=== PATIENT | female | born 1990 | race Caucasian/White ===

== ENCOUNTER 2019-03-15 14:34 | Emergency (ER) | payer SELFPAY ==
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
[2019-03-15 15:38] LABS: ABSOLUTE LYMPHOCYTES (AUTO) 1.6 10^3/uL (0.5-4.7); ABSOLUTE MONOCYTES (AUTO) 0.4 10^3/uL (0.1-1.4); ABSOLUTE NEUT (AUTO) 5.8 10^3/uL (1.7-8.2); BASOPHILS % (AUTO) 0.1 % (0-2); EOSINOPHILS % (AUTO) 0.3 % (0-6); HEMATOCRIT 39.9 % (36.0-47.0); HEMOGLOBIN 14.1 g/dL (12.0-15.5); LYMPHOCYTES % (AUTO) 20.8 % (13-45); MEAN CORPUSCULAR HEMOGLOBIN 30.9 pg (27.0-33.4); MEAN CORPUSCULAR HGB CONC 35.4 g/dL (32.0-36.0); MEAN CORPUSCULAR VOLUME 87 fl (80-97); MONOCYTES % (AUTO) 5.3 % (3-13); PLATELET COUNT 193 10^3/uL (150-450); RED BLOOD COUNT 4.57 10^6/uL (3.72-5.28); RED CELL DISTRIBUTION WIDTH 12.4 % (11.5-14.0); SEGMENTED NEUTROPHILS % (AUTO) 73.5 % (42-78); TOTAL CELLS COUNTED % (AUTO) 100 %; WHITE BLOOD COUNT 7.8 10^3/uL (4.0-10.5)
[2019-03-15 16:03] LABS: ALANINE AMINOTRANSFERASE 31 U/L (9-52); ALBUMIN 4.3 g/dL (3.5-5.0); ALKALINE PHOSPHATASE 72 U/L (38-126); ANION GAP 8 (5-19); ASPARTATE AMINO TRANSFERASE 26 U/L (14-36); BILIRUBIN,DIRECT 0.2 mg/dL (0.0-0.4); BILIRUBIN,TOTAL 0.6 mg/dL (0.2-1.3); BLOOD UREA NITROGEN 10 mg/dL (7-20); CALCIUM 10.3 mg/dL (8.4-10.2); CARBON DIOXIDE 27 mmol/L (22-30); CHLORIDE 103 mmol/L (98-107); GLUCOSE 86 mg/dL (75-110); LIPASE 28.3 U/L (23-300); SODIUM 137.6 mmol/L (137-145)
[2019-03-15 16:11] LABS: ACETAMINOPHEN < 10 ug/mL (10-30); ALCOHOL < 10 mg/dL (NONE DETECTED); SALICYLATE < 1.0 mg/dL (2.0-20.0)
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
[2019-03-15 16:45] LABS: APPEARANCE,URINE SLIGHTLY-CLOUDY; BILIRUBIN,URINE NEGATIVE (NEGATIVE); COLOR,URINE STRAW; GLUCOSE, URINE NEGATIVE (NEGATIVE); KETONES,URINE NEGATIVE (NEGATIVE); LEUKOCYTE ESTERASE,URINE NEGATIVE (NEGATIVE); NITRITE,URINE NEGATIVE (NEGATIVE); PROTEIN,URINE NEGATIVE (NEGATIVE); URINE SPECIFIC GRAVITY 1.004; UROBILINOGEN,URINE NEGATIVE mg/dL (<2.0)
[2019-03-15 17:07] LABS: URINE AMPHETAMINES SCREEN NEGATIVE; URINE BARBITURATES SCREEN NEGATIVE; URINE BENZODIAZEPINES SCREEN NEGATIVE; URINE COCAINE SCREEN NEGATIVE; URINE MARIJUANA (THC) SCREEN UNCONFIRMED POSITIVE; URINE METHADONE SCREEN NEGATIVE; URINE PHENCYCLIDINE SCREEN NEGATIVE
[2019-03-15] MEDS ORDERED: ACETAMINOPHEN 325 MG TABLET PO ONE (17:31)
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
[2019-03-15] MEDS: CLONAZEPAM 1 MG TABLET PO SCH (17:49)
[2019-03-15] MEDS: HALOPERIDOL 5 MG TABLET PO PRN (17:49)
--- NOTE | 2019-03-15 19:48 | EKG REPORT ---
SEVERITY:- NORMAL ECG - SINUS RHYTHM : Confirmed by: Lizzy Hull MD 15-Mar-2019 19:48:02
[2019-03-15] MEDS: BENZTROPINE MESYLATE 1 MG TABLET PO SCH (21:28)
[2019-03-15] MEDS: SUCRALFATE 1 GM TABLET PO SCH (21:28)
[2019-03-16] MEDS: SUCRALFATE 1 GM TABLET PO SCH ×4 (08:06→23:13)
[2019-03-16] MEDS: HALOPERIDOL 5 MG TABLET PO PRN ×2 (09:26→17:17)
[2019-03-16] MEDS: ESCITALOPRAM OXALATE 10 MG TABLET PO SCH (09:27)
[2019-03-16] MEDS: CLONAZEPAM 1 MG TABLET PO SCH ×2 (09:28→17:17)
[2019-03-16] MEDS ORDERED: NICOTINE 14 MG/24 HR PATCH.TD24 TD ONE (11:55)
[2019-03-16] MEDS ORDERED: POLYETHYLENE GLYCOL 3350 POWDER 17 GM/1 PACKET PO ONE (15:29)
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
--- NOTE | 2019-03-16 17:44 | ER Document Report ---
Doctor's Note Notes: 03/16/19 17:40 The patient's chart was reviewed, the labs were looked at. The psychiatric caseworkers notes were reviewed. The case was discussed with Jared Singh. The patient has been noted to be in and out of the room frequently today in no distress. At this time she remains on IVC hold and will be reevaluated in the morning.
[2019-03-16] MEDS: BENZTROPINE MESYLATE 1 MG TABLET PO SCH (23:13)
[2019-03-17] MEDS: SUCRALFATE 1 GM TABLET PO SCH ×2 (08:02→11:40)
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
[2019-03-17] MEDS: HALOPERIDOL 5 MG TABLET PO PRN (09:35)
[2019-03-17] MEDS: CLONAZEPAM 1 MG TABLET PO SCH (09:35)
[2019-03-17] MEDS: ESCITALOPRAM OXALATE 10 MG TABLET PO SCH (09:35)
--- NOTE | 2019-03-17 10:19 | ER Document Report ---
Doctor's Note Notes: 03/17/19 10:17 Patient seen and evaluated by myself this morning. She is resting comfortably in no acute distress. She has is complaining of pain over her right elbow. She does have ecchymosis with well-healing abrasion over the distal right humerus. Patient is able to move her right elbow through full range of motion and there is no obvious deformity. She does have some mild tenderness to the distal right humerus under the area of ecchymosis. I do not see any imaging on initial presentation. X-ray will be ordered since patient is having continued pain. Further disposition pending psych eval this morning.
--- NOTE | 2019-03-17 10:56 | RADIOLOGY REPORT (SQ) ---
EXAM DESCRIPTION: HUMERUS RIGHT COMPLETED DATE/TIME: 03/17/2019 10:31 am REASON FOR STUDY: trauma COMPARISON: None. NUMBER OF VIEWS: Two views. TECHNIQUE: Two radiographic images were acquired of the right humerus to include elbow and shoulder in at least one projection. LIMITATIONS: None. FINDINGS: MINERALIZATION: Normal. BONES: No acute fracture or dislocation. No worrisome bone lesions. SOFT TISSUES: No obvious swelling or foreign body. OTHER: No other significant finding. IMPRESSION: NEGATIVE STUDY OF THE RIGHT HUMERUS. NO RADIOGRAPHIC EVIDENCE OF ACUTE INJURY. TECHNICAL DOCUMENTATION: JOB ID: [id number] [email or web address]- All Rights Reserved Reading location - IP/workstation name: [email or web address]
[2019-03-17 13:19] VITALS: BP 126/75
== END 2019-03-17 13:18 | disposition home or self-care (01) ==
LOC: ER 14:34
DX: F23 Brief psychotic disorder (principal); F43.10 Post-traumatic stress disorder, unspecified; R45.850 Homicidal ideations; S40.811A Abrasion of right upper arm, initial encounter; X58.XXXA Exposure to other specified factors, initial encounter; M25.521 Pain in right elbow; F17.210 Nicotine dependence, cigarettes, uncomplicated; Z79.899 Other long term (current) drug therapy; Z88.1 Allergy status to other antibiotic agents; Z88.8 Allergy status to other drugs, medicaments and biological substances; Z91.040 Latex allergy status
CPT/HCPCS: 93005; 99285; 36415; 80307 ×4; 83690; 84703; 85025; 80053; 81001; 73060; 93010; J3490

== ENCOUNTER 2019-11-23 17:13 | Emergency (ER) | payer SELFPAY ==
[2019-11-23] MEDS ORDERED: CHLORPROMAZINE HCL INJ 25 MG/1 ML AMPULE IM ONE (17:24)
[2019-11-23 17:50] LABS: ABSOLUTE LYMPHOCYTES (AUTO) 1.2 10^3/uL (0.5-4.7); ABSOLUTE NEUT (AUTO) 9.1 10^3/uL (1.7-8.2); BASOPHILS % (AUTO) 0.2 % (0-2); HEMATOCRIT 41.9 % (36.0-47.0); HEMOGLOBIN 14.5 g/dL (12.0-15.5); LYMPHOCYTES % (AUTO) 10.5 % (13-45); MEAN CORPUSCULAR HEMOGLOBIN 29.2 pg (27.0-33.4); MEAN CORPUSCULAR HGB CONC 34.5 g/dL (32.0-36.0); MEAN CORPUSCULAR VOLUME 85 fl (80-97); MONOCYTES % (AUTO) 8.7 % (3-13); PLATELET COUNT 215 10^3/uL (150-450); RED BLOOD COUNT 4.96 10^6/uL (3.72-5.28); RED CELL DISTRIBUTION WIDTH 13.1 % (11.5-14.0); SEGMENTED NEUTROPHILS % (AUTO) 80.6 % (42-78); TOTAL CELLS COUNTED % (AUTO) 100 %; WHITE BLOOD COUNT 11.3 10^3/uL (4.0-10.5)
[2019-11-23 18:08] LABS: ALBUMIN 4.9 g/dL (3.5-5.0); ALKALINE PHOSPHATASE 81 U/L (38-126); ANION GAP 16 (5-19); ASPARTATE AMINO TRANSFERASE 45 U/L (14-36); BILIRUBIN,DIRECT 0.1 mg/dL (0.0-0.4); BILIRUBIN,TOTAL 0.6 mg/dL (0.2-1.3); BLOOD UREA NITROGEN 18 mg/dL (7-20); CALCIUM 10.2 mg/dL (8.4-10.2); CARBON DIOXIDE 25 mmol/L (22-30); CHLORIDE 100 mmol/L (98-107); GLUCOSE 110 mg/dL (75-110); POTASSIUM 3.7 mmol/L (3.6-5.0); TOTAL PROTEIN 8.2 g/dL (6.3-8.2)
[2019-11-23 18:10] LABS: ACETAMINOPHEN < 10 ug/mL (10-30); SALICYLATE < 1.0 mg/dL (2.0-20.0)
--- NOTE | 2019-11-23 19:47 | ER Document Report ---
Entered by TEODORO MORRIS SCRIBE 11/23/19 182 Acting as scribe for:ADITHYA EVANGELISTA IV, MD ED Psych Disorder / Suicide - General Chief Complaint: Psych Problem Stated Complaint: PSYCH Mode of Arrival: Ambulatory Information source: Patient Notes: This 29-year-old female patient presents to the emergency department today in handcuffs in custody of the [place] [employer]. The patient was brought in with IVC paperwork as well. OTILIA states that the patient called their department this evening from the [facility] hotel, stating that she had a warrant out for her arrest and she was wishing to turn herself in. OTILIA states that they ran the patient's information and she had no warrants out for her arrest, however she began acting quite bizarre in their presence. Patient reportedly told OTILIA that she was murdered last night and reincarnated today as a man, mentions that she is paralyzed from the waist down but was ambulatory, as well as several other extremely bizarre statements the patient made which caused them to become concerned for the patient's safety. Patient has a history of mental illness including schizophrenia with multiple hospitalizations in the past. TRAVEL OUTSIDE OF THE [place] IN LAST 30 DAYS: No - Related Data Allergies/Adverse Reactions: ciprofloxacin [From Cipro] Allergy (Verified 03/15/19 14:35) divalproex sodium [From Depakote] Allergy (Verified 03/15/19 14:36) latex Allergy (Verified 03/15/19 14:35) Home Medications: unable to answer Past Medical History - General Information source: Patient, PENDING SALE TO [facility] Records - Social History Smoking Status: Unknown if Ever Smoked Chew tobacco use (# tins/day): - ink Frequency of alcohol use: None Drug Abuse: None Lives with: Family Family History: Reviewed & Not Pertinent Patient has suicidal ideation: No Patient has homicidal ideation: No Review of Systems - Review of Systems -: Yes ROS unobtainable due to patient's medical condition Physical Exam - Vital signs Vitals: Temp Pulse Resp BP Pulse Ox 100.5 F H 150 H 20 123/68 98 11/23/19 17:43 11/23/19 17:43 11/23/19 17:43 11/23/19 17:43 11/23/19 17:43 - Notes Notes: Physical Exam: General: Belligerent nonsensical speech, uncooperative, combative, acute psychosis. HEENT: Normocephalic. Atraumatic. PERRL. Extraocular movements intact. Oropharynx clear. Neck: Supple. Non-tender. Respiratory: No respiratory distress. Clear and equal breath sounds bilaterally. Cardiovascular: Regular rate and rhythm. Abdominal: Obese. Non-tender. No distension. Normal Bowel Sounds. Back: No gross abnormalities. Extremities: Moves all four extremities. Upper extremities: Normal inspection. Normal ROM. Lower extremities: Normal inspection. No edema. Normal ROM. Psychological: Tangential speech. Flight of ideas. Grandiose delusions. Bizarre speech. Skin: Warm. Dry. Normal color. Course - Vital Signs Vital signs: Temp Pulse Resp BP Pulse Ox 100.5 F H 150 H 20 123/68 98 11/23/19 17:43 11/23/19 17:43 11/23/19 17:43 11/23/19 17:43 11/23/19 17:43 - Laboratory Result Diagrams: 11/23/19 17:23 11/23/19 17:23 Laboratory results interpreted by me: 11/23/19 11/23/19 17:23 17:23 WBC 11.3 H Lymph % (Auto) 10.5 L Absolute Neuts (auto) 9.1 H Seg Neutrophils % 80.6 H AST 45 H Salicylates < 1.0 L Acetaminophen < 10 L - EKG Interpretation by Me Additional EKG results interpreted by me: 11/23/19 18:39 EKG obtained on 11/23/2019 at 1731 hrs. was interpreted by this MD. Findings: Sinus tachycardia, rate 139, normal axis, P waves proceed QRS complexes. QRS complexes appear narrow. There are no obvious segments of ST elevation or depression present to suggest acute infarct and/or injury. Discharge - Discharge Clinical Impression: Acute psychosis, Involuntary commitment Condition: Good Disposition: PSYCH HOSP/UNIT I personally performed the services described in the documentation, reviewed and edited the documentation which was dictated to the scribe in my presence, and it accurately records my words and actions.
[2019-11-23] MEDS ORDERED: DIPHENHYDRAMINE HCL 50 MG/ML VIAL IM ONE (20:03)
[2019-11-23] MEDS: DIPHENHYDRAMINE HCL 50 MG/ML VIAL IM PRN (21:25)
[2019-11-23] MEDS: CHLORPROMAZINE HCL INJ 25 MG/1 ML AMPULE IM SCH (21:26)
[2019-11-23] MEDS ORDERED: LORAZEPAM 1 MG TABLET PO ONE (22:42)
[2019-11-24] MEDS ORDERED: ACETAMINOPHEN 325 MG TABLET PO ONE ×3 (00:13→20:40)
[2019-11-24 01:33] LABS: APPEARANCE,URINE CLEAR; BILIRUBIN,URINE NEGATIVE (NEGATIVE); COLOR,URINE YELLOW; GLUCOSE, URINE NEGATIVE (NEGATIVE); KETONES,URINE TRACE mg/dL (NEGATIVE); LEUKOCYTE ESTERASE,URINE NEGATIVE (NEGATIVE); NITRITE,URINE NEGATIVE (NEGATIVE); PROTEIN,URINE NEGATIVE (NEGATIVE); URINE SPECIFIC GRAVITY 1.023; UROBILINOGEN,URINE NEGATIVE mg/dL (<2.0)
[2019-11-24 01:51] LABS: URINE BARBITURATES SCREEN NEGATIVE; URINE COCAINE SCREEN NEGATIVE; URINE MARIJUANA (THC) SCREEN NEGATIVE; URINE METHADONE SCREEN NEGATIVE; URINE PHENCYCLIDINE SCREEN NEGATIVE
[2019-11-24 01:52] LABS: URINE AMPHETAMINES SCREEN UNCONFIRMED POSITIVE; URINE BENZODIAZEPINES SCREEN UNCONFIRMED POSITIVE
[2019-11-24] MEDS: CHLORPROMAZINE HCL INJ 25 MG/1 ML AMPULE IM SCH ×3 (06:11→22:49)
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
[2019-11-24] MEDS: DIPHENHYDRAMINE HCL 50 MG/ML VIAL IM PRN (14:30)
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
[2019-11-24] MEDS ORDERED: NICOTINE 21 MG/24 HR PATCH.TD24 TD ONE (14:53)
--- NOTE | 2019-11-24 16:24 | EKG REPORT ---
SEVERITY:- ABNORMAL ECG - SINUS TACHYCARDIA ST DEPRESSION, CONSIDER ISCHEMIA, INF LEADS : Confirmed by: Lizzy Hull MD 24-Nov-2019 16:23:54
--- NOTE | 2019-11-24 19:25 | ER Document Report ---
Doctor's Note Notes: 11/24/19 19:24 late addition. Vitals currently reassuring. Patient is afebrile. Patient is nontoxic, well-appearing. Patient has requested a nicotine patch and Tylenol which were ordered. Patient continuing to wait psychiatric placement.
[2019-11-25] MEDS ORDERED: LORAZEPAM INJ 2 MG/1 ML VIAL IM ONE (00:16)
[2019-11-25] MEDS ORDERED: ZIPRASIDONE MESYLATE INJ/PF 20 MG SDV IM ONE (05:17)
[2019-11-25] MEDS ORDERED: DIPHENHYDRAMINE HCL 50 MG/ML VIAL IM ONE (05:18)
[2019-11-25] MEDS: CHLORPROMAZINE HCL INJ 25 MG/1 ML AMPULE IM SCH (07:01)
--- NOTE | 2019-11-25 09:57 | PSYCHOLOGICAL NOTE ---
Psych Note - Psych Note Date seen by psych provider: 11/25/19 Time seen by psych provider: 07:55 - 1st attempt Psych Note: Reason for Consult: Manic, psychosis Patient upon arrival in the ED via law enforcement. She was in handcuffs and very acutely psychotic, stating she had that morning and was brought back to life for an unknown reason. Check in attempted with patient: patient is currently sleeping for the first time during this ed visit; will attempt again later. Diagnosis: Patient is current Manic with psychosis suggesting Bipolar with psychotic features enlarged ibis cisterna magna, per history provided by patient mother during previous evaluation Posttraumatic Stress Disorder per history Cluster B personality traits are noted during previous evaluation Medication recommendations per [facility]'s contracted psychiatrist Dr. Adarsh FERNANDO are as follows Thorazine 100 mg every 4 hours as needed Benadryl 50 mg every 6 hours as needed Impression / Plan: Patient is recommended to continue on IVC. Medication recommendations have been provided; placement is being sought. Dr. Briones was consulted to care management of this patient; attending physician that agreed with recommendations and disposition.
[2019-11-25] MEDS ORDERED: HALOPERIDOL DECANOATE INJ 100 MG/1 ML VIAL IM ONE (12:49)
[2019-11-25] MEDS: CHLORPROMAZINE HCL INJ 25 MG/1 ML AMPULE IM PRN ×2 (12:55→21:08)
--- NOTE | 2019-11-25 14:23 | ER Document Report ---
Doctor's Note Notes: 11/25/19 14:22 patient is resting comfortably in the room. Patient is nontoxic, well-appearing. Patient is currently awaiting placement per psychiatric team.
[2019-11-25] MEDS: HALOPERIDOL 5 MG TABLET PO SCH (17:47)
[2019-11-25] MEDS: BENZTROPINE MESYLATE 1 MG TABLET PO SCH (17:47)
[2019-11-25] MEDS: LITHIUM CARBONATE 300 MG CAPSULE PO SCH (21:08)
[2019-11-26] MEDS: LITHIUM CARBONATE 300 MG CAPSULE PO SCH ×2 (08:57→23:26)
--- NOTE | 2019-11-26 09:38 | PSYCHOLOGICAL NOTE ---
Psych Note - Psych Note Date seen by psych provider: 11/26/19 Time seen by psych provider: 07:45 Psych Note: Reason for Consult: Manic, psychosis Patient upon arrival in the ED via law enforcement. She was in handcuffs and very acutely psychotic, stating she had that morning and was brought back to life for an unknown reason. Check in conducted with patient: Patient refuses to engage with clinician stating she does not feel well. It is possible the patient is experiencing withdrawal. Diagnosis: Patient is current Manic with psychosis suggesting Bipolar with psychotic features enlarged ibis cisterna magna, per history provided by patient mother during previous evaluation Posttraumatic Stress Disorder per history Cluster B personality traits are noted during previous evaluation Medication recommendations per [facility] contracted psychiatrist Dr. Adarsh FERNANDO are as follows Thorazine 100 mg every 4 hours as needed Benadryl 50 mg every 6 hours as needed Impression / Plan: Patient is recommended to continue on IVC. Medication recommendations have been provided; placement is being sought. Dr. Briones was consulted to care management of this patient; attending physician that agreed with recommendations and disposition.
[2019-11-26] MEDS ORDERED: ONDANSETRON 4 MG TAB.RAPDIS PO ONE ×2 (09:48→18:53)
--- NOTE | 2019-11-26 16:32 | ER Document Report ---
Doctor's Note Notes: 11/26/19 16:31 evaluated patient. Patient is currently resting comfortably. Patient is currently waiting placement per psychiatric team.
[2019-11-26] MEDS: HALOPERIDOL 5 MG TABLET PO SCH (20:21)
[2019-11-26] MEDS: BENZTROPINE MESYLATE 1 MG TABLET PO SCH (20:21)
[2019-11-26] MEDS ORDERED: PROMETHAZINE HCL INJ 25 MG/1 ML VIAL IM ONE (22:09)
[2019-11-27] MEDS: CHLORPROMAZINE HCL INJ 25 MG/1 ML AMPULE IM PRN (00:20)
[2019-11-27] MEDS: LITHIUM CARBONATE 300 MG CAPSULE PO SCH ×2 (09:41→22:30)
[2019-11-27] MEDS: HALOPERIDOL 5 MG TABLET PO SCH ×2 (09:42→17:43)
[2019-11-27] MEDS: BENZTROPINE MESYLATE 1 MG TABLET PO SCH ×2 (09:42→17:43)
--- NOTE | 2019-11-27 14:07 | PSYCHOLOGICAL NOTE ---
Psych Note - Psych Note Date seen by psych provider: 11/27/19 Time seen by psych provider: 08:25 Psych Note: Reason for Consult: Manic, psychosis Patient upon arrival in the ED via law enforcement. She was in handcuffs and very acutely psychotic, stating she had that morning and was brought back to life for an unknown reason. Check in conducted with patient: Patient initially refused to engage with clinician then started to shrug her shoulders when asked questions. Upon the clinician exiting the room the patient abruptly stated to clinician; "I have only one question... what is the significance of the color of your pants...they wont tell me what it means for the color of your pants in the ." Patient became upset the longer she spoke. when clinician explained that the color was just the pants the clinician put on this morning and that the clinician is not in the , the patient stated she did not believe the clinician and became withdrawn again. Diagnosis: Patient is current Manic with psychosis suggesting Bipolar with psychotic features enlarged ibis cisterna magna, per history provided by patient mother during previous evaluation Posttraumatic Stress Disorder per history Cluster B personality traits are noted during previous evaluation Updated Medication recommendations per [facility]'s contracted psychiatrist Dr. Adarsh FERNANDO a re as follows Please add Haldol Decanoate 100 mg once Continue Thorazine 100 mg to every 8 hours as needed Continue Cogentin 1 mg twice daily Continue Haldol 5 mg twice daily Continue lithium 600 mg every morning and 300 mg nightly Impression / Plan: Patient is recommended to continue on IVC. Medication recommendations have been provided; placement is being sought. Dr. Briones was consulted to care management of this patient; attending physician that agreed with recommendations and disposition. Updated information faxed to [facility] at 1954
[2019-11-27] MEDS ORDERED: HALOPERIDOL DECANOATE INJ 100 MG/1 ML VIAL IM ONE (14:15)
--- NOTE | 2019-11-27 14:16 | ER Document Report ---
Doctor's Note Notes: 11/27/19 14:15 Medication recommendations received from psych. Chart reviewed. Patient remains medically cleared. She remains on IVC paperwork. Pending placement to psychiatric facility.
[2019-11-27] MEDS ORDERED: PROMETHAZINE HCL INJ 25 MG/1 ML VIAL IM ONE (17:32)
[2019-11-28] MEDS ORDERED: PROMETHAZINE HCL 25 MG TABLET PO ONE (04:56)
--- NOTE | 2019-11-28 04:58 | ER Document Report ---
Doctor's Note Notes: 11/28/19 04:57 RN came and informed me that the patient had thrown up and was asking for some nausea medicine. When I spoke with the patient she stated she would prefer Phenergan by mouth does not want an injection. She did states she did not want me touching her so I did not touch her abdomen. Patient is calm at this time. The nurse states that she did go in the bathroom and throw up earlier.
[2019-11-28] MEDS: BENZTROPINE MESYLATE 1 MG TABLET PO SCH ×3 (07:34→17:03)
[2019-11-28] MEDS: HALOPERIDOL 5 MG TABLET PO SCH ×3 (07:35→17:03)
[2019-11-28] MEDS: LITHIUM CARBONATE 300 MG CAPSULE PO SCH ×2 (09:05→22:23)
--- NOTE | 2019-11-28 12:37 | ER Document Report ---
Doctor's Note Notes: 11/28/19 12:15 PHYSICAL EXAMINATION: GENERAL: Patient somewhat disheveled in appearance HEAD: Atraumatic, normocephalic. EYES: sclera anicteric, conjunctiva are normal. ENT: nares patent. Moist mucous membranes. NECK: Normal range of motion, supple without lymphadenopathy LUNGS: CTAB and equal. No wheezes rales or rhonchi. HEART: Regular rate and rhythm without murmurs EXTREMITIES: Normal range of motion BACK: no CVA tenderness NEUROLOGICAL: Cranial nerves grossly intact. PSYCH: Patient is easily agitated with tangential speech, patient with flights of ideas SKIN: Warm, Dry, normal turgor, no rashes or lesions noted Upon entry into room patient initially pleasant and then very shortly became agitated requesting provider only speak to her friend outside of the room because of a "veil" that the provider was wearing. Patient then accused provider of being God and then clarified that no the provider was not got that she was God. Patient also agitated that there is Greek writing on the ceiling. Patient advised that the writing is Syriac and Turkmen, patient became increasingly agitated because of the writing. Patient able to be somewhat redirected. Patient appears medically clear for transfer pending mental health evaluation at this time. 11/28/19 13:48 Nurse reports that patient vomited part of her lunch. Staff states that it is possible that she may have gagged herself as this is how she vomited earlier in the evening after gagging herself. Staff states that they did not actually wi tness her vomiting although she did have emesis in the room. Nurse Lyn advised that he can give patient one-time dose of Thorazine 50 mg p.o. Riki [place] advised that patient does have a order for Thorazine 100 mg IM although this has been written prn for agitation. FELIX Lyn advised not to give the Thorazine 100 mg, within the next 8 hours, as we are giving this one-time dose of Thorazine 50 mg orally.
[2019-11-28] MEDS ORDERED: CHLORPROMAZINE HCL 50 MG TABLET PO ONE (13:45)
--- NOTE | 2019-11-28 16:33 | PSYCHOLOGICAL NOTE ---
Psych Note - Psych Note Date seen by psych provider: 11/28/19 Time seen by psych provider: 11:30 Psych Note: Check in conducted with patient: As soon as clinician entered room, patient oriented patient's attention to where she had vomited on the floor. Per nurse and patient safety coordinator report, patient has been observed enduing vomiting. Diagnosis: Patient is current Manic with psychosis suggesting Bipolar with psychotic features enlarged ibis cisterna magna, per history provided by patient mother during previous evaluation Posttraumatic Stress Disorder per history Cluster B personality traits are noted during previous evaluation Medication recommendations per [facility]'s contracted psychiatrist Dr. Adarsh FERNANDO are as follows Thorazine 100 mg to every 8 hours as needed Cogentin 1 mg twice daily Haldol 5 mg twice daily [place] 600 mg every morning and 300 mg nightly Impression / Plan: Patient is recommended to continue on IVC. Medication recommendations have been provided; placement is being sought. Dr. Briones was consulted to care management of this patient; attending physician that agreed with recommendations and disposition.
[2019-11-28] MEDS: CHLORPROMAZINE HCL INJ 25 MG/1 ML AMPULE IM PRN (22:23)
[2019-11-29] MEDS: LITHIUM CARBONATE 300 MG CAPSULE PO SCH ×2 (10:25→21:51)
[2019-11-29] MEDS: HALOPERIDOL 5 MG TABLET PO SCH ×2 (10:25→17:37)
[2019-11-29] MEDS: BENZTROPINE MESYLATE 1 MG TABLET PO SCH ×2 (10:26→17:37)
--- NOTE | 2019-11-29 16:21 | ER Document Report ---
Doctor's Note Notes: 11/29/19 11:45 PHYSICAL EXAMINATION: GENERAL: Disheveled and in no acute distress. HEAD: Atraumatic, normocephalic. EYES: sclera anicteric, conjunctiva are normal. ENT: nares patent. Moist mucous membranes. NECK: Normal range of motion, supple without lymphadenopathy LUNGS: CTAB and equal. No wheezes rales or rhonchi. HEART: Regular rate and rhythm without murmurs EXTREMITIES: Normal range of motion. BACK: No midline tenderness. No CVA tenderness NEUROLOGICAL: Cranial nerves grossly intact. PSYCH: Pressured speech, flight of ideas with delusions SKIN: Warm, Dry, normal turgor, no rashes or lesions noted Patient medically cleared for transfer although is presently awaiting placement.
--- NOTE | 2019-11-29 19:29 | PSYCHOLOGICAL NOTE ---
Psych Note - Psych Note Date seen by psych provider: 11/29/19 Time seen by psych provider: 09:45 Psych Note: Check in conducted with patient: Patient's status has not changed. Clinician notes continued tangential through processes and episodes of verbal aggression. Ms. Fay Hammond from the [facility] is patient's remedy developer. Ms. Hammond is waiting for [facility] to complete their invetigation so [facility] can begin theirs. Ms. Hammond can be contacted at [phone]. Medication recommendations per [facility]'s contracted psychiatrist Dr. Adarsh FERNANDO are as follows Thorazine 100 mg to every 8 hours as needed Cogentin 1 mg twice daily Haldol 5 mg twice daily [place] 600 mg every morning and 300 mg nightly Impression / Plan: Patient is recommended to continue on IVC. Medication recommendations have been provided; placement is being sought. Dr. Briones was consulted to care management of this patient; attending physician that agreed with recommendations and disposition.
[2019-11-29] MEDS: CHLORPROMAZINE HCL INJ 25 MG/1 ML AMPULE IM PRN (21:51)
[2019-11-30] MEDS: LITHIUM CARBONATE 300 MG CAPSULE PO SCH ×2 (08:06→21:32)
[2019-11-30] MEDS: HALOPERIDOL 5 MG TABLET PO SCH ×2 (09:44→17:34)
[2019-11-30] MEDS: BENZTROPINE MESYLATE 1 MG TABLET PO SCH ×2 (09:44→17:34)
--- NOTE | 2019-11-30 12:49 | PSYCHOLOGICAL NOTE ---
Psych Note - Psych Note Date seen by psych provider: 11/30/19 Time seen by psych provider: 07:55 Psych Note: Reason for Consult: Manic, psychosis Patient upon arrival in the ED via law enforcement. She was in handcuffs and very acutely psychotic, stating she had that morning and was brought back to life for an unknown reason. Check in conducted with patient: Patient is now starting to engage with her environment ie talking with staff (she still does not watch TV or attempt to read or write). She continues to demonstrate disorganized thought processes. When asked if she knew the current year she responded "2019 is the year I pray I don't become president, but I have someone to valero for me. I can't help it that I don't have and or ." Patient then started to discuss that she has no friends and asked the clinician "what do I do?" ] Staff report the patient has been heard talking and laughing to herself in her room. Her TV has been off the entire time she has been here and there is no visitors so patient is alone in her room. Diagnosis: Patient is current Manic with psychosis suggesting Bipolar with psychotic features enlarged ibis cisterna magna, per history provided by patient mother during previous evaluation Posttraumatic Stress Disorder per history Cluster B personality traits are noted during previous evaluation Medication recommendations per [facility]'s contracted psychiatrist Dr. Adarsh FERNANDO are as follow Continue Thorazine 100 mg to every 8 hours as needed Continue Cogentin 1 mg twice daily Continue Haldol 5 mg twice daily Continue lithium 600 mg every morning and 300 mg nightly Impression / Plan: Patient is recommended to continue on IVC. She continues to meet IVC criteria so her paperwork has been renewed. While the patient has improved in her presentation with interaction with her environment; she continues to demonstrate disorganized thought processes. She is unable to enga ge in organized, linear and logical conversation. Over the past week, to include today, the patient has been observed engaging with her hallucinations ie laughing and talking to herself. Medication recommendations have been provided; placement is being sought. She is a [place] referral. Dr. Briones was consulted to care management of this patient; attending physician that agreed with recommendations and disposition.
--- NOTE | 2019-11-30 17:54 | ER Document Report ---
Doctor's Note Notes: 11/30/19 17:30 Vitals are reassuring. Patient is resting comfortably in room. Nontoxic, well-appearing. Patient is awaiting placement per psych team.
[2019-11-30] MEDS ORDERED: ACETAMINOPHEN 325 MG TABLET PO ONE (21:41)
[2019-12-01] MEDS: LITHIUM CARBONATE 300 MG CAPSULE PO SCH ×2 (08:17→22:16)
[2019-12-01] MEDS: HALOPERIDOL 5 MG TABLET PO SCH ×2 (10:37→17:57)
[2019-12-01] MEDS: BENZTROPINE MESYLATE 1 MG TABLET PO SCH ×2 (10:37→17:57)
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
[2019-12-01] MEDS: CHLORPROMAZINE HCL INJ 25 MG/1 ML AMPULE IM PRN ×2 (14:00→22:16)
[2019-12-01] MEDS ORDERED: ACETAMINOPHEN 325 MG TABLET PO ONE (22:45)
--- NOTE | 2019-12-02 09:13 | PSYCHOLOGICAL NOTE ---
Psych Note - Psych Note Date seen by psych provider: 12/02/19 Time seen by psych provider: 08:10 Psych Note: Reason for Consult: Manic, psychosis Patient upon arrival in the ED via law enforcement. She was in handcuffs and very acutely psychotic, stating she had that morning and was brought back to life for an unknown reason. Check in conducted with patient: Patient greeted clinician with a smile. Patient requested her morning medications and breakfast. Patient engaged in appropriate, polite conversation with clinician. Clinician notes patient was smiling. Updated 10:27- Clinician observed pressured speech and patient discussing auditory hallucinations with nursing staff. Diagnosis: Patient is current Manic with psychosis suggesting Bipolar with psychotic features enlarged ibis cisterna magna, per history provided by patient mother during previous evaluation Posttraumatic Stress Disorder per history Cluster B personality traits are noted during previous evaluation Medication recommendations per [facility]'s contracted psychiatrist Dr. Adarsh FERNANDO are as follow Continue Thorazine 100 mg to every 8 hours as needed Continue Cogentin 1 mg twice daily Continue Haldol 5 mg twice daily Continue lithium 600 mg every morning and 300 mg nightly Impression / Plan: Patient is recommended to continue on IVC. Patient is curr ently on a bed delay at [place]. Patient's presentation is improved. Will continue to observe. Dr. Briones was consulted to care management of this patient; attending physician that agreed with recommendations and disposition.
[2019-12-02] MEDS: LITHIUM CARBONATE 300 MG CAPSULE PO SCH ×2 (09:25→22:30)
[2019-12-02] MEDS: HALOPERIDOL 5 MG TABLET PO SCH ×2 (09:25→17:27)
[2019-12-02] MEDS: BENZTROPINE MESYLATE 1 MG TABLET PO SCH ×2 (09:25→17:27)
--- NOTE | 2019-12-02 14:26 | ER Document Report ---
Doctor's Note Notes: 12/02/19 14:25 Upon daily rounding patient is sitting upright on stretcher. Patient appears manic but is calm and cooperative. Patient has been tolerating her medications and taking them as ordered and documented. Patient nontoxic-appearing in no acute distress.
[2019-12-02] MEDS ORDERED: ACETAMINOPHEN 325 MG TABLET PO ONE (15:47)
[2019-12-03] MEDS: LITHIUM CARBONATE 300 MG CAPSULE PO SCH (08:14)
[2019-12-03 08:21] VITALS: BP 131/94
[2019-12-03] MEDS: HALOPERIDOL 5 MG TABLET PO SCH (09:50)
[2019-12-03] MEDS: BENZTROPINE MESYLATE 1 MG TABLET PO SCH (09:50)
[2019-12-03] MEDS: CHLORPROMAZINE HCL INJ 25 MG/1 ML AMPULE IM PRN (12:06)
--- NOTE | 2019-12-03 13:15 | ER Document Report ---
Doctor's Note Notes: 12/03/19 13:13 During rounding patient is resting on the stretcher. Patient did require an IM injection of Thorazine as she did come in and out of her room, attempted to go into another patient's room and kept coming to the nurses station. Patient denies suicidal or homicidal ideation. Patient does report intermittent h allucinations. Patient has been eating and drinking appropriately. IVC was rescinded by Dr. Palacio. Grandmother to waste picker patient. Will verify with the mental health that the patient has close follow-up and will give 2 weeks worth of prescriptions for Cogentin, Haldol, lithium as the patient has been on these 3 medications since arriving to the emergency department. From previous notes it does appear that this is helping the patient.
== END 2019-12-03 14:40 | disposition home or self-care (01) ==
LOC: ER 17:13 → EEVIPCON 17:13 → ER 12-03 14:40
DX: Z04.6 Encounter for general psychiatric examination, requested by authority (principal); F23 Brief psychotic disorder; R11.10 Vomiting, unspecified; R00.0 Tachycardia, unspecified; Z65.3 Problems related to other legal circumstances; Z78.1 Physical restraint status; Z88.1 Allergy status to other antibiotic agents; Z88.8 Allergy status to other drugs, medicaments and biological substances; Z91.041 Radiographic dye allergy status
CPT/HCPCS: 93005; 36415; 80307 ×3; 85025; 81025; 80053; 81001; 93010; J3230 ×7; J3490 ×9; J1631 ×2; J1200 ×3; J2060; J3486; J2550 ×2